=== PATIENT | male | born 1995 | race Two or more races ===

== ENCOUNTER → 2025-03-04 | Outpatient (CLI) | payer OTHER ==
--- NOTE | 2025-03-05 07:04 | HMCIMG ---
EXAMINATION: ULTRASOUND OF THE SCROTUM. CLINICAL HISTORY: Pain. COMPARISON: None. TECHNIQUE: Real-time grayscale ultrasound images of the testes. FINDINGS: Both the testicles are in caliber, and echotexture. The right testicle measures 3.4 x 1.9 x 2.9 cm. The left testicle measures 3.6 x 1.8 x 2.4 cm. There is patent flow in both the testicles. No mass or abnormal echotexture. Both the epididymides are normal in appearance. The right epididymis head measures 0.5 cm, body measures 0.3 cm, and tail measures 0.3 cm. The left epididymis head measures 0.5 cm, body measures 0.3 cm, and tail measures 0.4 cm. There is no varicocele. There is no hydrocele. The scrotal wall appears normal. There is a complex collection that measures 4.3 x 0.8 x 0.7 cm in the perineal area. IMPRESSION: Complex collection in the perineal area, of concern for abscess. Recommend CT or MRI. /[facility]
== END | disposition home or self-care (01) ==
LOC: RAH 10:13
PROVIDERS: ATTEND Family Medicine
DX: N50.82 Scrotal pain (principal)
CPT/HCPCS: 76870